=== PATIENT | male | born 1985 | race Caucasian/White ===

== ENCOUNTER 2023-11-19 17:52 | Emergency (ER) | payer OTHER ==
[2023-11-19 18:08] VITALS: RESP 17; TEMP 98.3; O2SAT 96
[2023-11-19] MEDS ORDERED: XYLOCAINE 1% HCL 20 ML MDV ONE (18:10)
[2023-11-19] MEDS ORDERED: Adacel Vial IM ONE (18:11)
[2023-11-19] MEDS: Adacel Vial IM ONE (18:15)
[2023-11-19] MEDS: XYLOCAINE 1% HCL 20 ML MDV IJ ONE (18:15)
[2023-11-19 18:35] VITALS: BP 124/87; PULSE 66
--- NOTE | 2023-11-19 18:37 | ERPHSYRPT ---
- History of Present Illness Time Seen by Provider: 11/19/23 18:00 Source: patient Exam Limitations: no limitations Patient Subjective Stated Complaint: C/O laceration at work. Cut his right forearm while roof bolting with a metal plate on the bolt. Patient works at [employer]). Triage Nursing Assessment: Patient ambulated back to ER. He is alert and oriented. Bandage to right forearm removed. Patient has a laceration to his lateral right forearm. Laceration measures 0.8cm X 3.4cm. Small amount of active bleeding present when washing out the wound. Surrounding skin noted to contain dust/dirt; area cleansed with saline and hibiclens. CMS checks WNL to right arm/hand/fingers. Physician History: Patient is a 38-year-old white male who works at the [employer] who suffered a laceration to the volar surface of his right forearm 3.8 cm in length. It was superficial in depth. Timing/Duration: today Quality: painful Severity: mild Location: other (Right forearm) Allergies/Adverse Reactions: No Known Drug Allergies Allergy (Verified 11/19/23 17:56) Home Medications: Fluoxetine HCl 20 mg [Prozac 20 MG] 1 cap PO DAILY 11/19/23 [History] Hx Tetanus, Diphtheria Vaccination/Date Given: No (NOT tetanus) Hx Influenza Vaccination/Date Given: No Hx Pneumococcal Vaccination/Date Given: No Travel Risk - International Travel Have you traveled outside of the country in past 3 weeks: No - Emerging Infectious Disease Are you exhibiting symptoms associated with any current EIDs: No - Review of Systems Constitutional: No Fever, No Chills Eyes: No Symptoms Ears, Nose, & Throat: No Symptoms Respiratory: No Cough, No Dyspnea Cardiac: No Chest Pain, No Edema, No Syncope Abdominal/Gastrointestinal: No Abdominal Pain, No Nausea, No Vomiting, No Diarrhea Genitourinary Symptoms: No Dysuria Musculoskeletal: No Back Pain, No Neck Pain Skin: Other (Laceration right forearm), No Rash Neurological: No Dizziness, No Focal Weakness, No Sensory Changes Psychological: No Symptoms Endocrine: No Symptoms All Other Systems: Reviewed and Negative - Past Medical History Pertinent Past Medical History: Yes Musculoskeletal History: Other Psycho-Social History: Depression, Other Other Medical History: carpal tunnel - Past Surgical History Past Surgical History: Yes Other Surgical History: carpal tunnel surgery, right arm surgery (lizeth placed and later removed) - Social History Smoking Status: Never smoker Exposure to second hand smoke: No Drug Use: none - Nursing Vital Signs Nursing Vital Signs: Initial Vital Signs Temperature 98.3 F 11/19/23 17:57 Pulse Rate 94 H 11/19/23 17:57 Respiratory Rate 17 11/19/23 17:57 Blood Pressure 115/82 11/19/23 17:57 O2 Sat by Pulse Oximetry 96 11/19/23 17:57 Pain Scale Pain Intensity 4 - Physical Exam General Appearance: no apparent distress, alert Eye Exam: PERRL/EOMI, eyes nml inspection Ears, Nose, Throat Exam: normal ENT inspection, pharynx normal, moist mucous membranes Neck Exam: normal inspection, non-tender, supple, full range of motion Respiratory Exam: normal breath sounds, lungs clear, No respiratory distress Cardiovascular Exam: regular rate/rhythm, normal heart sounds Gastrointestinal/Abdomen Exam: soft, mass, No tenderness Back Exam: normal inspection, normal range of motion, No CVA tenderness, No vertebral tenderness Extremity Exam: normal inspection, normal range of motion Neurologic Exam: alert, oriented x 3, cooperative, normal mood/affect, sensation nml, No motor deficits Skin Exam: normal color, warm, dry, laceration (3.8 cm laceration right forearm volar surface superficial linear) SpO2: 96 Procedures - Laceration/Wound Repair Right Arm Time of Procedure: 18:34 Wound Location: Right, lower arm Wound Length (cm): 3.8 Wound's Depth, Shape: superficial, linear Wound Explored: clean Irrigated: Yes Hibiclens Prep: Yes Anesthesia: 1% Lidocaine Volume Anesthetic (ccs): 3 Wound Debrided: minimal Wound Repaired With: sutures Suture Size/Type: 5-0 Number of Sutures: 5 Layer Closure?: No Sterile Dressing Applied?: Yes Splint Applied?: No Sling Applied?: No - Course Nursing assessment & vital signs reviewed: Yes Ordered Tests: Medication Summary Discontinued Medications Generic Name Dose Route Start Last Admin Trade Name Freq PRN Reason Stop Dose Admin Diphtheria/Tetanus/Acell Pertussis 0.5 ml 11/19/23 18:08 11/19/23 18:15 Tdap --Diph,Pertuss(Acell),Tet Vac/Pf 0.5 Ml Vial IM 11/19/23 18:09 0.5 ml .ONCE ONE Administration Diphtheria/Tetanus/Acell Pertussis Confirm 11/19/23 18:11 Tdap --Diph,Pertuss(Acell),Tet Vac/Pf 0.5 Ml Vial Administered 11/19/23 18:12 Dose 0.5 ml IM .STK-MED ONE Lidocaine HCl 5 ml 11/19/23 18:09 11/19/23 18:15 Lidocaine Hcl 1% 20 Ml Mdv 20 Ml Ml IJ 11/19/23 18:10 5 ml STAT ONE Administration Lidocaine HCl Confirm 11/19/23 18:10 Lidocaine Hcl 1% 20 Ml Mdv 20 Ml Ml Administered 11/19/23 18:11 Dose 5 ml .ROUTE .STK-MED ONE - Progress Progress: improved Medical Desision Making - Risk of complications Low Risk: Low risk of morbidity from additional dx testing or treatment - Departure Departure Disposition: Home Clinical Impression: Laceration Condition: Stable Critical Care Time: No Referrals: DOCTOR,NO FAMILY [Primary Care Provider] - Follow up/PCP as directed Instructions: Wound Care (DC), Laceration Repair With Stitches (DC)
== END 2023-11-19 18:46 | disposition home or self-care (01) ==
LOC: ED 17:52
DX: S51.811A Laceration without foreign body of right forearm, initial encounter (principal); W26.8XXA Contact with other sharp object(s), not elsewhere classified, initial encounter; Y92.64 Mine or pit as the place of occurrence of the external cause; Y99.0 Civilian activity done for income or pay; Z79.899 Other long term (current) drug therapy; Z23 Encounter for immunization
CPT/HCPCS: 12002; 90471; 90715; 96372; 99283